=== PATIENT | male | born 1975 | race Caucasian/White ===

== ENCOUNTER 2024-01-01 12:37 | Emergency (ER) | payer OTHER, SELFPAY ==
[2024-01-01] VITALS (15 sets, daily range): BP systolic 171–205; BP diastolic 118–139; PULSE 73–92; RESP 16; O2SAT 94–97
--- NOTE | 2024-01-01 12:52 | CRLHL7_ITS ---
For Patients: As a result of the Century Cures Act, medical imaging exams and procedure reports are released immediately into your electronic medical record. You may view this report before your referring provider. If you have questions, please contact your health care provider. INDICATION: Chest pain, shortness of breath COMPARISON: None. TECHNIQUE: PA and lateral 2 view chest. FINDINGS: Lung volumes are good. No focal or diffuse opacities. No pulmonary edema. No pleural effusion. No pneumothorax. No pneumomediastinum. Normal cardiomediastinal silhouette. Bones: Normal for age. IMPRESSION: Normal chest radiographs. Dictated by Lesli Don MD @ 01/01/2024 1:49:48 PM (Electronically Signed)
[2024-01-01 13:13] LABS: Basophils Absolute Auto 0.03 K/uL (0.00-0.30); Basophils Percent Auto 0.3 % (0.0-3.0); Eosinophils Absolute Auto 0.01 K/uL (0.00-0.50); Eosinophils Percent Auto 0.1 % (0.0-7.0); Hematocrit 49.7 % (37.0-53.0); Hemoglobin* 16.7 gm/dL (13.5-17.5); Immature Granulocytes Abs Auto 0.01 K/uL (0.00-0.30); Immature Granulocytes Pct Auto 0.1 %; Lymphocytes Percent Auto 18.3 % (20-44); Mean Corpuscular HGB Conc 34 gm/dL (32-36); Mean Corpuscular Hemoglobin 30 pg (26-34); Mean Corpuscular Volume 90 fL (80-100); Monocytes Percent Auto 7.7 % (0.0-11.0); Neutrophils Percent Auto 73.5 % (42.0-72.0); Platelet Count* 224 K/uL (140-440); RDW Coefficient of Variation % 11.8 % (11.5-15.5); Red Blood Count 5.55 m/uL (4.30-5.90); White Blood Count* 10.41 K/uL (4.50-11.00)
[2024-01-01 13:14] LABS: Lactate* 1.4 mmol/L (0.5-1.9)
--- NOTE | 2024-01-01 13:15 | ED.GENADULT ---
HPI - General Adult General Chief complaint: Chest Pain Stated complaint: 217/140 BP, palpitations, feels like heart attack Time Seen by Provider: 01/01/24 12:44 Source: patient Mode of arrival: ambulatory Limitations: no limitations History of Present Illness HPI narrative: 48-year-old male presenting today with left-sided chest pain that started 2 days ago. He states that nothing makes it better, thinking about it makes it worse. Pain is located in the left lower chest wall. He describes it as a odd discomfort and sometimes a ?gurgling?. It is not associated with physical activity. It comes and goes. He denies feeling dizzy, lightheaded, nauseated or short of breath. He denies any new cough. No fevers or chills. He states that he was traveling approximately 1 month ago. His appetite is unchanged. He denies any new onset diarrhea or constipation. Patient does have a history of hypertension that is not treated. Patient states that he did not have insurance for a while. States that he checked a blood pressure of at the pharmacy today and the systolic was 217. Past surgical history significant for cholecystectomy. Patient does not take any medications. Denies tobacco use. Related Data Previous Rx's ?Medication ?Instructions ?Recorded chlorthalidone 25 mg tablet 25 mg PO DAILY #30 tabs 01/01/24 lisinopril 10 mg tablet 10 mg PO DAILY #30 tabs 01/01/24 Allergies Allergy/AdvReac Type Severity Reaction Status Date / Time No Known Drug Allergies Allergy Verified 01/01/24 12:50 Review of Systems Status of ROS: Reports: 10 or more systems reviewed and unremarkable except as noted in History and below [facility] Social History Smoking Status: Never smoker Do you use any of these nicotine containing products: None How often do you have a drink containing alcohol: 2-3 times a week How often do you have six or more drinks on one occasion: Never AUDIT-C Alcohol total score: 3 Non-prescribed substance use: denies use Exam Narrative: Exam Narrative: Overweight, well-developed patient in no acute distress. Alert and oriented. Answers questions appropriately. Mood and affect are appropriate. Thoughts are goal oriented and rational. No tangential or magical thinking noted. Patient speaks in full sentences without needing to catch his breath. He does not appear ill or toxic. HEENT: Normocephalic atraumatic. Pupils are equally round reactive to light. Extraocular muscles are intact. Conjunctivae are moist without any icterus noted. Moist mucous membranes. Posterior pharynx is normal. Neck is soft without any lymphadenopathy or thyromegaly. No masses are appreciated. Cardiovascular: Heart is regular rate and rhythm S1 and S2 are present without any murmurs. Lungs: Clear to auscultation bilaterally no wheezes rhonchi or rales are appreciated. Patient takes deep breaths without any discomfort. Abdomen: Protuberant. Soft and nontender nondistended with normal bowel sounds. No guarding or rebound. No masses or organomegaly appreciated. He does not have pain with palpation of the spleen. Extremities: Bilateral lower extremities are without edema. Normal DP and PT pulses. Skin: Well perfused without any obvious rashes. Const: Vital Signs, click to edit/add: Vital Signs - 24 hr 01/01/24 12:46 01/01/24 12:55 01/01/24 13:00 Pulse Rate 90 88 Respiratory Rate 16 Blood Pressure Blood Pressure [Le ft Upper Arm] 203/139 H Pulse Oximetry 96 96 97 Oxygen Delivery Me thod Room Air 01/01/24 13:04 01/01/24 13:15 01/01/24 13:27 Pulse Rate 91 84 Respiratory Rate Blood Pressure 205/132 H Blood Pressure [Le ft Upper Arm] Pulse Oximetry 96 96 95 Oxygen Delivery Me thod 01/01/24 13:30 01/01/24 13:48 01/01/24 13:50 Pulse Rate 92 90 85 Respiratory Rate Blood Pressure 185/128 H Blood Pressure [Le ft Upper Arm] Pulse Oximetry 95 94 95 Oxygen Delivery Me thod 01/01/24 13:50 01/01/24 13:51 01/01/24 14:00 Pulse Rate 85 83 80 Respiratory Rate Blood Pressure 185/128 H Blood Pressure [Le ft Upper Arm] Pulse Oximetry 95 96 94 Oxygen Delivery Me thod 01/01/24 14:15 01/01/24 14:28 01/01/24 14:30 Pulse Rate 73 73 79 Respiratory Rate Blood Pressure 171/118 H Blood Pressure [Le ft Upper Arm] Pulse Oximetry 95 94 94 Oxygen Delivery Me thod 01/01/24 14:45 Pulse Rate 76 Respiratory Rate Blood Pressure Blood Pressure [Le ft Upper Arm] Pulse Oximetry 95 Oxygen Delivery Me thod Course Course ED Course: Differential diagnoses includes pneumonia, pneumothorax, acute coronary syndrome, indigestion, PE. Upon arrival blood pressure was 203/139. Repeat blood pressure after patient had relaxed was 185/128. I did go ahead and start him on oral chlorthalidone and lisinopril. EKG, read by me, shows normal sinus rhythm with premature ventricular complex, pulse 93. CBC is unremarkable. D-dimer within normal limits. Normal chemistries. Normal lactate. Normal magnesium. Minimally elevated LFTs. CRP is less than 0.5. Troponin is 0.02. Normal lipase. BNP 738. Chest x-ray, read by me, does not show any acute pathology. UA unremarkable. BP came down to 171/118. 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 I repeated the EKG since his 1st 1 was read as premature atrial complexes which I do not agree with. The repeat EKG does indeed show multiple PVCs. Vital Signs Vital signs: Initial Vital Signs Respiratory Rate 16 01/01/24 12:46 Blood Pressure 203/139 H 01/01/24 12:46 Blood Pressure Mean 160 H 01/01/24 12:46 Blood Pressure Position Sitting 01/01/24 12:46 Pulse Oximetry 96 01/01/24 12:46 Oxygen Delivery Method Room Air 01/01/24 12:46 Vital Signs Respiratory Rate 16 01/01/24 12:46 Blood Pressure 203/139 H 01/01/24 12:46 Pulse Oximetry 96 01/01/24 12:46 Oxygen Delivery Method Room Air 01/01/24 12:46 Pulse Rate 76 01/01/24 14:45 Respiratory Rate 16 01/01/24 12:46 Blood Pressure 171/118 H 01/01/24 14:28 Pulse Oximetry 95 01/01/24 14:45 Oxygen Delivery Method Room Air 01/01/24 12:46 Medications Administered Medications: Discontinued Medications Generic Name Dose Route Start Last Admin Trade Name Freq PRN Reason Stop Dose Admin Aspirin 324 mg 01/01/24 12:52 01/01/24 13:22 Aspirin 81 Mg Tab.Chew PO 01/01/24 12:53 324 mg ONCE ONE Administration Chlorthalidone 25 mg 01/01/24 13:56 01/01/24 14:07 Chlorthalidone 25 Mg Tablet PO 01/01/24 13:57 25 mg ONCE ONE Administration Lisinopril 10 mg 01/01/24 13:56 01/01/24 14:07 Lisinopril 10 Mg Tablet PO 01/01/24 13:57 10 mg ONCE ONE Administration Medical Decision Making MDM Narrative Medical decision making narrative: 48-year-old male with atypical chest wall pain. Unclear etiology. We have effectively ruled out life-threatening causes that could cause pain in that location. He seems comfortable enough and his history and symptoms would be inconsistent with something more sinister like a ruptured triple a or aortic dissection. We will go ahead and send him home with chlorthalidone and lisinopril. He will establish care with a primary care provider this or next week. We discussed that he needs to have repeat blood test to make sure he is tolerating his blood pressure medication. Also recommend screening examinations since he is 48. 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 This was discussed with the patient. I offered a Holter or ZIO patch to be done from the ER - patient stated that he did not wish to do that at this time. Lab Data Lab results reviewed: Yes I reviewed the patient's lab results Labs: Lab Results 01/01/24 01/01/24 01/01/24 Range/Units 12:52 13:02 13:46 WBC 10.41 (4.50-11.00) K/uL RBC 5.55 (4.30-5.90) m/uL Hgb 16.7 (13.5-17.5) gm/dL Hct 49.7 (37.0-53.0) % MCV 90 (80-100) fL MCH 30 (26-34) pg MCHC 34 (32-36) gm/dL RDW Coeff of Ramon 11.8 (11.5-15.5) % Plt Count 224 (140-440) K/uL Neut % (Auto) 73.5 H (42.0-72.0) % Lymph % (Auto) 18.3 L (20-44) % White % (Auto) 7.7 (0.0-11.0) % Eos % (Auto) 0.1 (0.0-7.0) % Baso % (Auto) 0.3 (0.0-3.0) % Neut # (Auto) 7.70 H (1.7-7.0) K/uL Lymph # (Auto) 1.90 (0.90-2.90) K/uL White # (Auto) 0.80 (0.00-0.90) K/UL Eos # (Auto) 0.01 (0.00-0.50) K/uL Baso # (Auto) 0.03 (0.00-0.30) K/uL Abs Immat Gran (auto) 0.01 (0.00-0.30) K/uL Imm/Tot Granulo (auto) 0.1 % ESR 2 (2-15) mm/hr D-Dimer Quant (PE/DVT) 0.25 (0.00-0.50) ug/ml Sodium 136 (135-149) mmol/L Potassium 3.7 (3.6-5.1) mmol/L Chloride 100 (96-114) mmol/L Carbon Dioxide 26 (20-32) mmol/L Anion Gap 10 (7-15) mEq/L BUN 17 (7-30) mg/dL Creatinine 1.1 (0.5-1.5) mg/dL Estimated GFR 82 ml/min Glucose 112 (60-115) mg/dL Lactate 1.4 (0.5-1.9) mmol/L Calcium 8.9 (8.4-10.6) mg/dL Magnesium 2.2 (1.5-2.6) mg/dL Total Bilirubin 1.0 (0.1-1.5) mg/dL Direct Bilirubin 0.4 (0.0-0.5) mg/dL AST 38 H (12-35) U/L ALT 55 H (4-50) U/L Alkaline Phosphatase 70 (40-150) U/L Troponin I 0.02 (0.01-0.04) ng/mL C-Reactive Protein < 0.5 L (0.5-1.0) mg/dL NT-Pro-B Natriuret Pep 738 pg/mL Total Protein 8.1 (6.0-8.3) g/dL Albumin 4.8 (3.3-5.0) g/dL Lipase 175 (23-300) U/L Urine Color Yellow (Yellow) Urine Appearance Clear (Clear) Urine pH 6.0 (5.0-8.5) Ur Specific [place] 1.015 (1.000-1.030) Urine Protein Negative (Negative) Urine Glucose (UA) Negative (Negative) Urine Ketones Negative (Negative) Urine Blood Trace-lysed A (Negative) Urine Nitrite Negative (Negative) Urine Bilirubin Negative (Negative) Urine Urobilinogen 0.2 (0.2-1.0) Ur Leukocyte Esterase Negative (Negative) Urine RBC 0-2 (0-2) Urine WBC 0-2 (0-5) Ur Squamous Epith Cells None (None-Few) Urine Bacteria None (None) POC Troponin I 0.02 (0.01-0.04) ng/ml Imaging Data Chest x-ray: Attestation: I have reviewed the pertinent imaging results. Radiologist's impression: PA and lateral 2 view chest. FINDINGS: Lung volumes are good. No focal or diffuse opacities. No pulmonary edema. No pleural effusion. No pneumothorax. No pneumomediastinum. Normal cardiomediastinal silhouette. Bones: Normal for age. IMPRESSION: Normal chest radiographs. ECG Data Attestation: I personally reviewed and interpreted this ECG as follows: Discharge Plan Discharge Clinical Impression: Atypical chest pain, Hypertension, uncontrolled, Frequent PVCs Additional Instructions: No obvious causing her discomfort was found today. Symptoms do not seem to be from a heart attack, lung infection, blood clot, or any other life-threatening cause. Start taking your blood pressure medication as prescribed. You will need to establish care with a primary care provider to have a repeat blood pressure check and to make sure you are not having any side effects from the medications - this requires blood work. You also have frequent premature ventricular contractions which is an extra her to limp. If this is usually benign however, you have many of them which can cause symptoms and put strain on the heart. I recommend that you have a heart monitor placed so that we can record how often these beats are occurring. You will need to have this done through your primary since you did not want have it done through the ER today. Prescriptions: New chlorthalidone 25 mg tablet 25 mg PO DAILY Qty: 30 0RF lisinopril 10 mg tablet 10 mg PO DAILY Qty: 30 0RF Follow Up/Referrals: Kj Malone MD [Primary Care Provider] - Stand Alone Forms: [facility] Info Instructions
[2024-01-01 13:17] LABS: Slide Review Reflex No
[2024-01-01 13:17] LABS: Troponin, Point-of-Care* 0.02 ng/ml (0.01-0.04)
[2024-01-01] MEDS: ASPIRIN 81 MG TAB.CHEW 324 MG PO (13:22)
[2024-01-01 13:34] LABS: Albumin* 4.8 g/dL (3.3-5.0); Chloride* 100 mmol/L (96-114); Sodium* 136 mmol/L (135-149)
[2024-01-01 13:35] LABS: Potassium* 3.7 mmol/L (3.6-5.1)
[2024-01-01 13:37] LABS: Creatinine* 1.1 mg/dL (0.5-1.5); Estimated Glomerular Filt Rate 82 ml/min
[2024-01-01 13:38] LABS: Alanine Aminotransferase* 55 U/L (4-50); Alkaline Phosphatase* 70 U/L (40-150); Anion Gap 10 mEq/L (7-15); Aspartate Amino Transferase* 38 U/L (12-35); Bilirubin Direct* 0.4 mg/dL (0.0-0.5); Blood Urea Nitrogen* 17 mg/dL (7-30); Calcium* 8.9 mg/dL (8.4-10.6); Carbon Dioxide* 26 mmol/L (20-32); Glucose* 112 mg/dL (60-115); Lipase* 175 U/L (23-300); Magnesium* 2.2 mg/dL (1.5-2.6); Total Protein* 8.1 g/dL (6.0-8.3)
[2024-01-01 13:50] LABS: D Dimer Quantitative* 0.25 ug/ml (0.00-0.50); Troponin I* 0.02 ng/mL (0.01-0.04)
[2024-01-01 13:51] LABS: C Reactive Protein* < 0.5 mg/dL (0.5-1.0); NT Pro B Type NatriureticPept* 738 pg/mL
[2024-01-01 14:07] LABS: Erythrocyte SedimentationRate* 2 mm/hr (2-15)
[2024-01-01] MEDS: lisinopriL 10 MG TABLET PO (14:07)
[2024-01-01] MEDS: CHLORTHALIDONE 25 MG TABLET PO (14:07)
[2024-01-01 14:17] LABS: Appearance Urine Clear (Clear); Bilirubin Urine Negative (Negative); Blood Urine Trace-lysed (Negative); Color Urine Yellow (Yellow); Glucose Urine Negative (Negative); Ketones Urine Negative (Negative); Leukocyte Esterase Urine Negative (Negative); Nitrite Urine Negative (Negative); Protein Urine Negative (Negative); Specific Gravity Urine 1.015 (1.000-1.030); Urobilinogen Urine 0.2 (0.2-1.0)
[2024-01-01 14:27] LABS: RBC Urine 0-2 (0-2); WBC Urine 0-2 (0-5)
== END 2024-01-01 15:24 | disposition home or self-care (01) ==
PROVIDERS: Emergency Provider Family Medicine; PCP Family Medicine
DX: R07.89 Other chest pain (principal); I10 Essential (primary) hypertension; I49.3 Ventricular premature depolarization
CPT/HCPCS: 36415; 71046; 80048; 80076; 81001; 83605; 83690; 83735; 83880; 84484; 85025; 85379; 85651; 86140; 93005; 94761; 99284; 99285; A9270

== ENCOUNTER 2024-01-25 11:46 | Outpatient (CLI) | payer OTHER, SELFPAY | END 2024-01-25 11:47 | disposition home or self-care (01) | LOC: FRMREF 11:48 | PROVIDERS: Visit Provider Physician Assistant Medical | DX: I10 Essential (primary) hypertension (principal); R79.89 Other specified abnormal findings of blood chemistry | CPT/HCPCS: 80048; 80061 ==

== ENCOUNTER 2024-09-11 08:32 | Outpatient (CLI) | payer OTHER, SELFPAY | END 2024-09-11 08:33 | disposition home or self-care (01) | LOC: FRMREF 08:37 | PROVIDERS: PCP Physician Assistant Medical; Visit Provider Physician Assistant Medical | DX: R63.5 Abnormal weight gain (principal) | CPT/HCPCS: 84443 ==